=== PATIENT | female | born 1980 ===

== ENCOUNTER 2022-05-01 05:00 | Day surgery (SDC) | payer OTHER ==
[~2022-05-01] VITALS: Ht 167.6 cm; Wt 81.6 kg
[~2022-05-01 05:00] MED LIST: ZYRTEC10 M3 PO
== END 2022-05-01 11:20 | disposition home or self-care (01) ==
LOC: CIR.AMB 05:00
PROVIDERS: ATTEND Colon & Rectal Surgery
DX: K43.9 Ventral hernia without obstruction or gangrene (principal); Z20.822 Contact with and (suspected) exposure to COVID-19; Z88.0 Allergy status to penicillin